=== PATIENT | female | born 1945 | race Caucasian/White ===

== ENCOUNTER 2020-09-07 08:26 | Outpatient (CLI) | payer MEDICARE | END 2020-09-07 08:27 | disposition home or self-care (01) | LOC: CSHCT 08:26 | PROVIDERS: ATTEND Family Medicine | DX: J90 Pleural effusion, not elsewhere classified (principal); J98.6 Disorders of diaphragm; J98.4 Other disorders of lung; I71.4 Abdominal aortic aneurysm, without rupture; I34.1 Nonrheumatic mitral (valve) prolapse; I34.0 Nonrheumatic mitral (valve) insufficiency; I51.7 Cardiomegaly | CPT/HCPCS: 71260; 82565; 93306 ==

== ENCOUNTER 2020-11-14 10:02 | Outpatient (CLI) | payer MEDICARE ==
[2020-11-14 10:41] LABS: Estimated GFR-MDRD - POC Greater than 90
== END 2020-11-14 10:03 | disposition home or self-care (01) ==
LOC: CSHCT 10:02
PROVIDERS: ATTEND Family Medicine
DX: J18.9 Pneumonia, unspecified organism (principal); J98.6 Disorders of diaphragm; J98.11 Atelectasis
CPT/HCPCS: 71260; 82565

== ENCOUNTER 2021-05-07 09:42 | Outpatient (CLI) | payer MEDICARE | END 2021-05-07 09:43 | disposition home or self-care (01) | LOC: CSHMAMMO 09:42 | PROVIDERS: ATTEND Family Medicine | DX: Z12.31 Encounter for screening mammogram for malignant neoplasm of breast (principal); Z13.820 Encounter for screening for osteoporosis; Z78.0 Asymptomatic menopausal state; M85.89 Other specified disorders of bone density and structure, multiple sites | CPT/HCPCS: 77063; 77067; 77080 ==